=== PATIENT | male | born 1960 | race Caucasian/White ===

== ENCOUNTER 2017-09-14 18:41 | Emergency (ER) | payer OTHER, SELFPAY ==
[2017-09-14 18:43] VITALS: BP 145/70; PULSE 74; RESP 14; TEMP 36.5; O2SAT 97; BMI 19.7
--- NOTE | 2017-09-14 18:50 | NURSING ---
CALLED [facility]
--- NOTE | 2017-09-14 18:56 | ED.RN ---
PT ACTUARIAL SCIENCE TEACHER IS CATRACHO LEIVA AND PHONE NUMBER IS [phone].
--- NOTE | 2017-09-14 19:18 | ED.RN ---
[facility] IN DEPT.
--- NOTE | 2017-09-14 19:37 | ED.VISSUMM ---
- ER Visit Summary Date of Service: 09/14/17 Chief Complaint: Laceration History of Present Illness: The patient is a 57 M with no primary care physician. Patient reports that he bumped his right elbow on a part at work. He states he has a sharp pain is 510 when he bends his elbow as the wound opens up. Is 2 out of 10 at rest. His tetanus is up-to-date. He denies any paresthesias distally. Physical Examination: Vitals: Stable. Afebrile. General: Well-nourished and well-developed. Head: Normocephalic atraumatic. Neck: Supple, no lymphadenopathy. No JVD. Nontender. Cardiovascular: Regular rate and rhythm. No murmurs. Respiratory: No respiratory distress. Clear to auscultation bilaterally. Abdominal: Soft, nontender, nondistended, normal bowel sounds. No guarding, rebound, or peritoneal signs. Back: Nontender. Extremities: 2 cm laceration over the right olecranon process. This does not involve the bursa. It is quite superficial. He has no pain with axial load of his arm. Skin: Normal color, no rash. Neurologic: Alert and oriented ?3. Cranial nerves II through XII are intact. Normal strength and sensation. Psych: Normal affect. Emergency Department Course and Treatment: He had his wound anesthetized and repaired. He tolerated it well. Treatment Plan: He will be discharged instructions to follow-up corporate care in 10-14 days for suture removal. Return to the emergency department for any worsening symptoms. Disposition: To home in improved and stable condition. Impression: 1. Laceration right elbow, 2 cm, repaired. Procedure note: Wound was cleansed with chlorhexidine soap. Anesthetized with 1% lidocaine without epinephrine. Copiously irrigated with normal saline. Wound was explored there is no foreign material present. It was closed with 5 simple interrupted 4-0 ethilon sutures. The patient tolerated it well. This note was generated with [employer] dictation software. It may contain incorrect words, spelling, and punctuation that were not noted in review of the chart prior to signing ED Disposition - Plan for ED Patient: Disposition: Home or Assisted Living Chief Complaint: Laceration Instructions: ED Laceration Ext Sutr Stap Tape Referrals: [facility] [GROUP OF PHYSICIANS] - 10-14 Days suture removal
--- NOTE | 2017-09-14 19:40 | ED.DCSUM_ITS ---
- ER Visit Summary Date of Service: 09/14/17 Chief Complaint: Laceration History of Present Illness: The patient is a 57 M with no primary care physician. Patient reports that he bumped his right elbow on a part at work. He states he has a sharp pain is 510 when he bends his elbow as the wound opens up. Is 2 out of 10 at rest. His tetanus is up-to-date. He denies any paresthesias distally. Physical Examination: Vitals: Stable. Afebrile. General: Well-nourished and well-developed. Head: Normocephalic atraumatic. Neck: Supple, no lymphadenopathy. No JVD. Nontender. Cardiovascular: Regular rate and rhythm. No murmurs. Respiratory: No respiratory distress. Clear to auscultation bilaterally. Abdominal: Soft, nontender, nondistended, normal bowel sounds. No guarding, rebound, or peritoneal signs. Back: Nontender. Extremities: 2 cm laceration over the right olecranon process. This does not involve the bursa. It is quite superficial. He has no pain with axial load of his arm. Skin: Normal color, no rash. Neurologic: Alert and oriented ?3. Cranial nerves II through XII are intact. Normal strength and sensation. Psych: Normal affect. Emergency Department Course and Treatment: He had his wound anesthetized and repaired. He tolerated it well. Treatment Plan: He will be discharged instructions to follow-up corporate care in 10-14 days for suture removal. Return to the emergency department for any worsening symptoms. Disposition: To home in improved and stable condition. Impression: 1. Laceration right elbow, 2 cm, repaired. Procedure note: Wound was cleansed with chlorhexidine soap. Anesthetized with 1% lidocaine without epinephrine. Copiously irrigated with normal saline. Wound was explored there is no foreign material present. It was closed with 5 simple interrupted 4- 0 ethilon sutures. The patient tolerated it well. This note was generated with [employer] dictation software. It may contain incorrect words, spelling, and punctuation that were not noted in review of the chart prior to signing ED Disposition - Plan for ED Patient: Disposition: Home or Assisted Living Chief Complaint: Laceration Instructions: ED Laceration Ext Sutr Stap Tape Referrals: [facility] [GROUP OF PHYSICIANS] - 10-14 Days suture removal
--- NOTE | 2017-09-14 19:53 | ED.RN ---
DISCHARGE INSTRUCTIONS GIVEN TO AND REVIEWED WITH PATIENT, PATIENT DENIES QUESTIONS OR CONCERNS AND VOICES UNDERSTANDING OF DISCHARGE INSTRUCTIONS. PT AMBULATES OUT OF ROOM WITHOUT DIFFICULTY.
== END 2017-09-14 19:55 | disposition home or self-care (01) ==
LOC: ED 19:09
PROVIDERS: Emergency Provider Emergency Medicine
DX: S51.011A Laceration without foreign body of right elbow, initial encounter (principal); W22.8XXA Striking against or struck by other objects, initial encounter; Y93.9 Activity, unspecified; Y92.89 Other specified places as the place of occurrence of the external cause; Y99.0 Civilian activity done for income or pay; I10 Essential (primary) hypertension; I25.10 Atherosclerotic heart disease of native coronary artery without angina pectoris; F17.200 Nicotine dependence, unspecified, uncomplicated; Z95.1 Presence of aortocoronary bypass graft
CPT/HCPCS: 12001; 99282

== ENCOUNTER 2017-10-29 21:02 | Emergency (ER) | payer BC, SELFPAY ==
[2017-10-29 21:03] VITALS: BP 156/106; PULSE 96; RESP 18; TEMP 36.6; O2SAT 99; BMI 25.0
--- NOTE | 2017-10-29 21:36 | ED.DCSUM_ITS ---
- ER Visit Summary Date of Service: 10/29/17 Chief Complaint: Dog bite right calf History of Present Illness: The patient is a 57 M who states he was bit by a pit bull. He denies any paresthesia, anesthesia motors. He reports anaphylactic reaction to penicillin. He is uncertain when his last tetanus shot was. He has no other complaints. Physical Examination: Blood pressure is elevated 156/106. He has puncture wounds to the right calf. The calf is not taut with minimal tenderness. There is no findings suggest a compartment syndrome. DP PT pulses are palpable. He has normal sensation of the foot. There is no pain to palpation over the tibia or the fibula. Test Results: None Emergency Department Course and Treatment: Cleanse wound and treat with doxycycline since is allergic to penicillin. There is no value in irrigating his irrigation will drive in the skin pippa and may increase chance of infection. Treatment Plan: Doxycycline 100 mg twice daily ?7 days and wound check in 2 days Disposition: Discharged home with appropriate home-going instructions Impression: Puncture wound secondary to dog bite right calf This note was generated with [employer] dictation software. It may contain incorrect words, spelling, and punctuation that were not noted in review of the chart prior to signing ED Disposition - Plan for ED Patient: Disposition: Home or Assisted Living Chief Complaint: Bite Instructions: ED Bite Dog Prescriptions: Doxycycline Monohydrate 100 mg PO BID #14 cap Referrals: Care Physician,No Primary [Primary Care Provider] - Yosvany Kitchen MD [STAFF PHYSICIAN] - 2 Days for wound check Additional Instructions: Since you do not have a doctor who referred to Dr. Yosvany Kitchen for wound check in 2 days
[2017-10-29] MEDS: Diphth,Pertuss(Acell),Tet Vac 0.5 ML Vial IM (21:57)
[2017-10-29] MEDS: Doxycycline 100 MG CAPSULE PO (21:57)
== END 2017-10-29 22:21 | disposition home or self-care (01) ==
PROVIDERS: Emergency Provider Emergency Medicine
DX: S81.831A Puncture wound without foreign body, right lower leg, initial encounter (principal); W54.0XXA Bitten by dog, initial encounter; Y93.9 Activity, unspecified; Y92.9 Unspecified place or not applicable; Y99.9 Unspecified external cause status; Z88.0 Allergy status to penicillin; Z72.0 Tobacco use
CPT/HCPCS: 90471; 90715; 99284; A4216

== ENCOUNTER 2017-12-30 17:32 | Emergency (ER) | payer OTHER, SELFPAY ==
[2017-12-30 17:33] VITALS: BP 149/87; PULSE 84; RESP 18; TEMP 37.1; O2SAT 98; BMI 25.5
--- NOTE | 2017-12-30 18:33 | ED.VISSUMM ---
- ER Visit Summary Date of Service: 12/30/17 Chief Complaint: Right elbow skin laceration History of Present Illness: The patient is a 57 M [id number]. States tetanus up-to-date. He works at [employer] and accidentally hit his right elbow against a metallic parts which cause a laceration. This occurred within the last 2 hours. He denies any other injuries. He has full range of motion to his elbow. States that there is no foreign body because of the large part. Physical Examination: Well-appearing middle-age male. Vital signs stable afebrile. H EENT exam unremarkable. Neck nontender. Lungs clear to auscultation bilaterally. Heart regular rate and rhythm no murmur. Chest nontender. Abdomen soft nontender. He is moving all 4 extremities. The neurovascular intact. Nontender no deformity normal range of motion. Specifically right shoulder wrist and hand are nontender neurovascular intact. 75 management professionals strength strong radial pulse. Normal touch sensation of his right hand. He has a 4 cm V-shaped laceration to the posterior aspect of his right elbow. No gross bony deformity. He has full flexion-extension supination and pronation of the right elbow. There is no foreign body. There is minimal bleeding. No signs of infection. Neurologic exam normal. Test Results: None Emergency Department Course and Treatment: Right elbow skin laceration with ER repair. Local anesthetic with lidocaine. Cleaned with Shur-Clens copiously irrigated, washed with saline and explored. Closed using 5-0 Ethilon simple interrupted sutures. 5 simple interrupted 5-0 Ethilon sutures. Proper hemostasis wound closure was obtained. Proper hemostasis wound closure was obtained. Patient was instructed on wound care and suture removal. Treatment Plan: Follow-up with [employer] [facility] is Worker's Comp. agency. Ice the area. Motrin for pain. Sutures out in 10 days. Disposition: Discharge Impression: Right elbow laceration with ER repair of 4 cm. Worker's Compensation injury This note was generated with [employer] dictation software. It may contain incorrect words, spelling, and punctuation that were not noted in review of the chart prior to signing ED Disposition - Plan for ED Patient: Chief Complaint: Laceration Referrals: Care Physician,No Primary [Primary Care Provider] -
--- NOTE | 2017-12-30 18:36 | ED.DCSUM_ITS ---
- ER Visit Summary Date of Service: 12/30/17 Chief Complaint: Right elbow skin laceration History of Present Illness: The patient is a 57 M [id number]. States tetanus up-to-date. He works at [employer] and accidentally hit his right elbow against a metallic parts which cause a laceration. This occurred within the last 2 hours. He denies any other injuries. He has full range of motion to his elbow. States that there is no foreign body because of the large part. Physical Examination: Well-appearing middle-age male. Vital signs stable afebrile. H EENT exam unremarkable. Neck nontender. Lungs clear to auscultation bilaterally. Heart regular rate and rhythm no murmur. Chest nontender. Abdomen soft nontender. He is moving all 4 extremities. The neurovascular intact. Nontender no deformity normal range of motion. Specifically right shoulder wrist and hand are nontender neurovascular intact. 75 borough coordinator strength strong radial pulse. Normal touch sensation of his right hand. He has a 4 cm V-shaped laceration to the posterior aspect of his right elbow. No gross bony deformity. He has full flexion-extension supination and pronation of the right elbow. There is no foreign body. There is minimal bleeding. No signs of infection. Neurologic exam normal. Test Results: None Emergency Department Course and Treatment: Right elbow skin laceration with ER repair. Local anesthetic with lidocaine. Cleaned with Shur-Clens copiously irrigated, washed with saline and explored. Closed using 5-0 Ethilon simple interrupted sutures. 5 simple interrupted 5-0 Ethilon sutures. Proper hemostasis wound closure was obtained. Proper hemostasis wound closure was obtained. Patient was instructed on wound care and suture removal. Treatment Plan: Follow-up with [employer] [facility] is Worker's Comp. agency. Ice the area. Motrin for pain. Sutures out in 10 days. Disposition: Discharge Impression: Right elbow laceration with ER repair of 4 cm. Worker's Compensation injury This note was generated with [employer] dictation software. It may contain incorrect words, spelling, and punctuation that were not noted in review of the chart prior to signing ED Disposition - Plan for ED Patient: Chief Complaint: Laceration Referrals: Care Physician,No Primary [Primary Care Provider] -
--- NOTE | 2017-12-30 19:54 | ED.DEP ---
ED Disposition - Plan for ED Patient: Disposition: Home or Assisted Living Chief Complaint: Laceration Instructions: ED Laceration All [facility]errals: [facility] [GROUP OF PHYSICIANS] - 10 Day for suture removal Additional Instructions: Keep wound clean. Clean daily with soap and water or peroxide and water. May get wet to dry thoroughly. Stitches out in 10 days. Return if any signs of infection such as redness, swelling, pus, fever or red streaks.
[2017-12-30 20:04] VITALS: RESP 16
== END 2017-12-30 20:05 | disposition home or self-care (01) ==
PROVIDERS: Emergency Provider Emergency Medicine
DX: S51.011A Laceration without foreign body of right elbow, initial encounter (principal); W22.8XXA Striking against or struck by other objects, initial encounter; Y93.89 Activity, other specified; Y92.69 Other specified industrial and construction area as the place of occurrence of the external cause; Y99.0 Civilian activity done for income or pay; I25.10 Atherosclerotic heart disease of native coronary artery without angina pectoris; I25.2 Old myocardial infarction; Z95.1 Presence of aortocoronary bypass graft; Z72.0 Tobacco use
CPT/HCPCS: 12002; 99282

== ENCOUNTER 2019-04-18 22:53 | Emergency (ER) | payer OTHER, BC, SELFPAY ==
[2019-04-18 22:54] VITALS: BP 171/102; PULSE 84; RESP 18; TEMP 36.2; O2SAT 96; BMI 25.8
--- NOTE | 2019-04-18 23:18 | ED.VISSUMM ---
- ER Visit Summary Date of Service: 04/18/19 Chief Complaint: Laceration History of Present Illness: The patient is a 58 M with no primary care physician. Reports approximate 1030 this evening he cut his right shoulder on a piece of metal that was sticking out at work. Reports he has a burning pain is 6 out of 10 at worst and 5-10 currently. Is worsened by movement relieved by rest. He is right-hand dominant. Denies any paresthesias distally. His tetanus is up-to-date. Physical Examination: Vitals: Stable. Afebrile. General: Well-nourished and well-developed. Head: Normocephalic atraumatic. Neck: Supple, no lymphadenopathy. No JVD. Nontender. Cardiovascular: Regular rate and rhythm. No murmurs. Respiratory: No respiratory distress. Clear to auscultation bilaterally. Abdominal: Soft, nontender, nondistended, normal bowel sounds. No guarding, rebound, or peritoneal signs. Back: Nontender. Extremities: 6 cm laceration of the lateral surface of his right deltoid. Minimal active bleeding. He is neurovascular intact distal to this, no edema. Skin: Normal color, no rash. Neurologic: Alert and oriented ?3. Cranial nerves II through XII are intact. Normal strength and sensation. Psych: Normal affect. Emergency Department Course and Treatment: Patient was treated with Tylenol. He had his wound anesthetized and repaired. He tolerated this well. Treatment Plan: Patient be discharged instructions follow-up corporate care in 10 to 14 days for suture removal. Return to the emergency department for any worsening symptoms. Disposition: To home in improved and stable condition. Impression: 1. Laceration right shoulder, 6 cm, repaired. Procedure note: Wound was cleansed with chlorhexidine soap. Anesthetized with 1% lidocaine without epinephrine. Copiously irrigated with normal saline. Wound was explored there is no foreign material present. It was closed with 6 simple interrupted 4-0 ethilon sutures. The patient tolerated it well. This note was generated with [employer] dictation software. It may contain incorrect words, spelling, and punctuation that were not noted in review of the chart prior to signing ED Disposition - Plan for ED Patient: Instructions: LACERATION, Extrem (Suture, Staple or Tape) Referrals: [facility] [GROUP OF PHYSICIANS] - 10-14 Days suture removal
== END 2019-04-19 00:12 | disposition home or self-care (01) ==
PROVIDERS: Emergency Provider Emergency Medicine
DX: S41.011A Laceration without foreign body of right shoulder, initial encounter (principal); W26.8XXA Contact with other sharp object(s), not elsewhere classified, initial encounter; Y93.9 Activity, unspecified; Y92.89 Other specified places as the place of occurrence of the external cause; Y99.0 Civilian activity done for income or pay; I25.10 Atherosclerotic heart disease of native coronary artery without angina pectoris; I10 Essential (primary) hypertension; Z95.1 Presence of aortocoronary bypass graft; Z72.0 Tobacco use
CPT/HCPCS: 12002; 99284

== ENCOUNTER 2020-11-10 16:25 | Outpatient (RCR) | payer BC, SELFPAY | END 2020-12-15 23:59 | LOC: IMMUN 16:25 | PROVIDERS: Visit Provider Family Medicine | DX: Z23 Encounter for immunization (principal) | CPT/HCPCS: 0001A; 0002A; 91300 ==

== ENCOUNTER → 2023-01-10 | Outpatient (CLI) | payer BC, SELFPAY ==
--- NOTE | 2023-01-10 12:58 | CT_ITS ---
STUDY: LOW DOSE CT LUNG CANCER SCREENING REASON FOR EXAM: Male, 62 years old. Lung cancer screening -- 30 pk yr hx;current smoker;asymptomatic RADIATION DOSAGE (If Supplied By Facility): CTDIvol = ( 3.02 ) mGy, DLP = ( 103.07 ) mGycm TECHNIQUE: No contrast was administered. Low dose technique was utilized (average mAS-38 and kVp 120). 1.25 mm axial source images with a slice interval of 1.25-mm were reconstructed in lung windows. 2.5 mm axial source images with a slice interval of 2.5-mm were reconstructed in lung windows. 5.0 mm axial source images with a slice interval of 5.0-mm were reconstructed in soft tissue windows. COMPARISON: None. NODULES: Scattered calcified granulomas. Emphysema: No significant emphysematous changes are seen. Endobronchial lesion: None Aorta: Atherosclerotic calcific plaques of the aortic arch. CORONARY ARTERIES: Coronary artery calcification is seen. Heart: Prior CABG Pulmonary artery: Unremarkable Mediastinal nodes: Benign-appearing small mediastinal lymph nodes. Other chest and abdominal findings: CT/Low Dose CT Lung Screening IMPRESSION: Lung-RADS category 2 - Continue annual screening with LDCT in 12 months. IMPORTANT NOTES FOR USE: ACR Lung-RADS Version 1.1 Assessment Categories Release Date: 2018 Category: Coded 0-4 bases on nodule(s) with highest degree of suspicion. Negative screen is defined as categories 1 and 2; a positive screen is defined as categories 3 and 4. Category 3 and 4A nodules that are unchanged on interval CT should be coded as category 2, and individuals returned to screening in 12 months. Category 4X: Category 3 or 4 nodules with additional imaging findings that increase the suspicion of lung cancer, such as spiculation, GGN that doubles in size in 1 year, enlarged lymph notes, etc. Category Modifiers: S (significant finding unrelated to lung cancer) Electronically Signed: David Epstein MD at 13:44 EDT ,
== END | disposition home or self-care (01) ==
PROVIDERS: Referring Provider Nurse Practitioner Family; Visit Provider Nurse Practitioner Family
DX: Z87.891 Personal history of nicotine dependence (principal)
CPT/HCPCS: 71271

== ENCOUNTER 2023-06-20 17:28 | Emergency (ER) | payer OTHER, BC, SELFPAY ==
[2023-06-20 17:30] VITALS: BP 188/105; PULSE 93; RESP 20; TEMP 36.7; O2SAT 100; BMI 24.3
[2023-06-20] MEDS: Lidocaine 1% (20 ml mdv) 20 ML Vial INFILT (17:44)
--- NOTE | 2023-06-20 17:51 | EDS_ITS ---
HPI <Dr. Jason Lea MD - Last Filed: 06/20/23 18:15> History of Present Illness Chief Complaint: Laceration Detail of Chief Complaint: Laceration mid right forearm ulnar side Informant: patient Occured/Mechanism Mechanism/Context: Yes blunt trauma Comment: This occurred at work. He was cut by a machine part. Onset/Context/Timing Onset: Hours Current Severity: Bleeding controlled with pressure Maximum Severity: Moderate Worsened by: Not applicable Relieved by: Pressure Associated Symptoms Associated Symptoms: Negative for Parasthesia, Weakness or Loss of Funtion Narrative Narrative: Patient is a 63-year-old [id number] male presents with laceration of his forearm. This is 2.3 cm in length. He denies paresthesia, anesthesia medic s. Last tetanus was 3 to 4 years ago. He is not on antithrombotic or anticoagulant. Tetanus Immunization: <5 years Prior similar symptoms: No Recent Illness/Hospitalization: No PFSH <Dr. Jason Lea MD - Last Filed: 06/20/23 18:15> PFSH Medical History Chronic renal failure CKD (chronic kidney disease) stage 3, GFR 30-59 ml/min Encounter for screening for malignant neoplasm of lung Grade A2 albuminuria History of tobacco use Leukocytosis Low back pain Mixed hyperlipidemia Myalgia PSA elevation Thrombocytosis Tobacco use disorder, continuous Type 1 diabetes mellitus with stage 2 chronic kidney disease Home Medications acetaminophen 500 mg tablet (Tylenol Extra Strength) 500 mg PO Q6H PRN 11/30/22 [History Last Taken Unknown] docusate sodium 100 mg capsule 100 mg PO BID 11/30/22 [History Last Taken Unknown] pantoprazole 40 mg tablet,delayed release 40 mg PO DAILY 11/30/22 [History Last Taken Unknown] tizanidine 4 mg capsule 4 mg PO QHS PRN 11/30/22 [History Last Taken Unknown] ibuprofen 200 mg capsule 200 mg PO Q6H PRN 12/15/22 [History Last Taken Unknown] dapagliflozin propanediol 5 mg tablet (Farxiga) 10 mg PO DAILY 01/10/23 [History Last Taken Unknown] Allergy/AdvReac Type Severity Reaction Status Date / Time Penicillins Allergy Anaphylaxis Verified 06/20/23 17:30 venom-honey bee Allergy Anaphylaxis Verified 06/20/23 17:30 [bee venom (honey bee)] Social History Smoking Status: Current every day smoker tobacco type: cigarettes alcohol intake: never substance use type: does not use ROS <Dr. Jason Lea MD - Last Filed: 06/20/23 18:15> ROS ED Neurologic Neurologic: Reports other Details: Further detail HPI narrative ; Denies paresthesias or weakness Hematologic/Lymphatic Hematologic/Lymphatic: Denies easy bleeding or easy bruising EXAM <Dr. Jason Lea MD - Last Filed: 06/20/23 18:15> Physical Exam Const Vital Signs: 06/20/23 17:30 Temperature 98.1 F Temperature Source Temporal Pulse Rate 93 Respiratory Rate 20 H Blood Pressure 188/105 H Blood Pressure Mean 132 Pulse Ox 100 Oxygen Delivery Method Room Air Positive well nourished and well developed General Appearance ED: well developed and NAD HEENT normocephalic and atraumatic Eyes PERRL and EOMs intact bilaterally Resp normal respiratory effort Cardio regular rate and regular rhythm Extremity Extremity Narrative: Laceration ulnar side right forearm 2.3 cm. Median, radial and ulnar function intact. Neuro oriented x3, CN's II-XII intact bilaterally, no focal motor deficits and no sensory deficits noted Sensorium / Orientation: alert Psych mental status grossly normal Skin Skin Narrative: Laceration right forearm laceration is down to subcutaneous tissue/fat [facility] <Dr. Jason Lea MD - Last Filed: 06/20/23 18:15> [facility] Narrative Medical decision making narrative: Patient laceration will require repair. Repair was performed by nurse daly lorenz under my direct supervision/guidance <KANDI Caballero - Last Filed: 06/20/23 18:06> [facility] Treatment and Re-Evaluation Narrative: Patient appears well, patient appears nontoxic, vital signs are stable. Present to the emergency department with a laceration to the posterior right forearm. This is roughly 2.5 cm linear. This was irrigated copiously with 300 cc of normal saline. I did place 6 simple sutures of 4-0 Ethilon. Patient did well, edges approximated nicely. A pressure dressing was placed. Patient will have these removed in 10 to 12 days. All questions were answered, patient's tetanus vaccination was updated 4 to 5 days. All questions answered, patient stable for discharge Procedures <KANDI Caballero - Last Filed: 06/20/23 18:06> Lacerations Forearm laceration: Depth: Skin Prep: Sterile Conditions and Shure-Clens Laceration repair: Lidocaine Irrigated (ml): 300 Number of Sutures/[place]: 6 Suture Information: Ethilon Comment: Please follow-up outpatient. Sterile gloves, sterile drapes used. Tolerated well. Discharge Plan Triage Chief Complaint: Laceration ED Provider: Jason Lea Dx/Rx/DC Orders Clinical Impression: Mixed hyperlipidemia, Forearm laceration, Chronic renal failure, Elevated blood pressure reading Instructions: ED Laceration, All Closures Prescriptions: No Action pantoprazole 40 mg tablet,delayed release (DR/EC) 40 mg PO DAILY acetaminophen [Tylenol Extra Strength] 500 mg tablet 500 mg PO Q6H PRN docusate sodium 100 mg capsule 100 mg PO BID tizanidine 4 mg capsule 4 mg PO QHS PRN ibuprofen 200 mg capsule 200 mg PO Q6H PRN Farxiga 5 mg tablet 10 mg PO DAILY Patient Comments: TAKE ONE TABLET BY MOUTH QD. AFTER 30 DAYS IF DOING WELL, WILL INCREASE DOSE. PLEASE CALL OFFICE. Primary Care Provider: Samuel Arguelles [facility] - 10 Day for suture removal Samuel Arguelles DO [Primary Care Provider] - Activity Restrictions/Additional Instructions: 1. Keep wound clean and dry 2. Clean wound with peroxide and Q-tip then apply bacitracin ointment. Perform this 3 times a day 3. If there is any concern for infection follow-up with corporate care or return to the emergency department Disposition Disposition: Home, Self Care
[2023-06-20 18:04] VITALS: BP 152/74; PULSE 81; RESP 12; O2SAT 99
--- NOTE | 2023-06-20 18:13 | ED.RN ---
[facility] REPORTS THAT SHE WILL BE IN TO EVALUATE THE PT.
== END 2023-06-20 18:19 | disposition home or self-care (01) ==
LOC: ED 18:13
PROVIDERS: Emergency Provider Emergency Medicine; Visit Provider Emergency Medicine
DX: S51.811A Laceration without foreign body of right forearm, initial encounter (principal); E10.22 Type 1 diabetes mellitus with diabetic chronic kidney disease; N18.30 Chronic kidney disease, stage 3 unspecified; E78.2 Mixed hyperlipidemia; R03.0 Elevated blood-pressure reading, without diagnosis of hypertension; F17.210 Nicotine dependence, cigarettes, uncomplicated; W31.89XA Contact with other specified machinery, initial encounter
CPT/HCPCS: 12001; 99284

== ENCOUNTER 2024-07-18 19:21 | Emergency (ER) | payer BC, SELFPAY ==
[2024-07-18 19:22] VITALS: BP 210/104; PULSE 69; RESP 18; TEMP 36.8; O2SAT 98; BMI 27.0
[2024-07-18] MEDS: Lidocaine 1% (20 ml mdv) 20 ML Vial INFILT (19:47)
--- NOTE | 2024-07-18 19:50 | EX.ED.GENINJ ---
HPI History of Present Illness Chief Complaint: Laceration Informant: patient Narrative Narrative: 64-year-old male presenting to the emergency department with right ring finger laceration. Patient was clearing snow out from his bumper when he felt something cut his finger. He notes his tetanus was updated last year when he got stitches to the right forearm. He notes that he can still move the finger like normally. Bleeding was controlled at the scene. Patient noted to be hypertensive in triage. He does not appear to have any symptomology from hypertension. He states that he knows that he does have hypertension. 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 Thrombocytosis PSA elevation Myalgia Mixed hyperlipidemia Low back pain Grade A2 albuminuria CKD (chronic kidney disease) stage 3, GFR 30-59 ml/min Home Medications ?Medication ?Instructions ?Recorded ?Last Taken ?Type acetaminophen 500 mg tablet 500 mg PO Q6H PRN 11/30/22 Unknown History (Tylenol Extra Strength) docusate sodium 100 mg capsule 100 mg PO BID 11/30/22 Unknown History pantoprazole 40 mg tablet,delayed 40 mg PO DAILY 11/30/22 Unknown History release tizanidine 4 mg capsule 4 mg PO QHS PRN 11/30/22 Unknown History ibuprofen 200 mg capsule 200 mg PO Q6H PRN 12/15/22 Unknown History dapagliflozin propanediol 5 mg 10 mg PO DAILY 01/10/23 Unknown History tablet (Farxiga) Allergy/AdvReac Type Severity Reaction Status Date / Time Penicillins Allergy Anaphylaxis Verified 07/18/24 19:24 venom-honey bee (bee venom Allergy Anaphylaxis Verified 07/18/24 19:24 (honey bee)) Social History Smoking Status: Current every day smoker tobacco type: cigarettes alcohol intake: never substance use type: does not use ROS ROS ED Constitutional Constitutional ED: Denies chills or weight loss Eyes Eyes: Denies change in vision or diplopia ENT ENT ED: Denies ear pain, rhinorrhea or sore throat Cardiovascular Cardiovascular: Denies chest pain, orthopnea, palpitations or racing heartbeat Respiratory/Chest Respiratory/Chest: Denies cough, dyspnea or orthopnea Gastrointestinal Gastrointestinal: Denies abdominal pain, diarrhea, nausea or vomiting Genitourinary Genitourinary ED: Denies dysuria, hematuria or urinary frequency Musculoskeletal Musculoskeletal: Denies arthralgias or myalgias Integumentary Reports other Details: Right ring finger laceration ; Denies abscess or rash Neurologic Neurologic: Denies headache(s) or weakness Psychiatric Psychiatric: Denies anxiety, depression, suicidal ideation or suicidal thoughts Endocrine Endocrinology: Denies polydipsia, polyphagia or polyuria Allergic/Immunologic Allergic/Immunologic ED: Denies mouth swelling, tongue swelling or urticaria EXAM Physical Exam Const Vital Signs: 07/18/24 19:22 07/18/24 19:54 Temperature 98.3 F Temperature Source Oral Pulse Rate 69 Respiratory Rate 18 Blood Pressure 210/104 H 165/100 H Blood Pressure Mean 139 121 Pulse Ox 98 Oxygen Delivery Method Room Air Positive well nourished and well developed General Appearance ED: well developed and NAD HEENT Reports normocephalic, head/scalp atraumatic and moist mucous membranes Eyes PERRL and EOMs intact bilaterally Neck no lymphadenopathy, supple and no JVD Resp normal respiratory effort and clear to auscultation bilaterally Cardio regular rate, regular rhythm and no murmurs GI normal to inspection, nondistended, normoactive bowel sounds and non-tender Palpation: soft Back/Spine no CVA tenderness and normal ROM Extremity normal to inspection General Extremety ED: Negative for edema General Extremity: Negative for edema Neuro oriented x3 and CN's II-XII intact bilaterally Sensorium / Orientation: alert Motor Exam: strength 5/5 throughout Psych mental status grossly normal Mood & Affect: Negative for depressed or tearful Skin no rashes or lesions noted Skin Narrative: There is a 1.5 cm linear laceration across the volar aspect of the right ring finger in the middle of the proximal phalanx. Neurovascularly appears intact with no deficits. There is no tendon deficit. No tendon visualized. Bleeding is controlled. MDM MDM MDM Narrative Medical decision making narrative: Differential diagnosis includes laceration tendon laceration neurovascular injury bone fracture Wound was locally anesthetized using 1% lidocaine. Wound was washed with Shur-Clens and explored. It is close she is total of 5 simple interrupted 4-0 Ethilon sutures. Wound was then dressed with bacitracin Telfa and [place]. Stitches will need to be removed in 7 to 10 days. Monitor for signs of infection return if worsening or concerns patient is comfortable with this plan History & Record Review Discussion w/independent historian: Patient Discharge Plan Triage Chief Complaint: Laceration ED Provider: David Knowles Dx/Rx/DC Orders Clinical Impression: Finger laceration, Hypertension Instructions: Hypertension Dc, ED Laceration, Hand: All Closures Prescriptions: No Action pantoprazole 40 mg tablet,delayed release (DR/EC) 40 mg PO DAILY acetaminophen [Tylenol Extra Strength] 500 mg tablet 500 mg PO Q6H PRN docusate sodium 100 mg capsule 100 mg PO BID tizanidine 4 mg capsule 4 mg PO QHS PRN ibuprofen 200 mg capsule 200 mg PO Q6H PRN Farxiga 5 mg tablet 10 mg PO DAILY Patient Comments: TAKE ONE TABLET BY MOUTH QD. AFTER 30 DAYS IF DOING WELL, WILL INCREASE DOSE. PLEASE CALL OFFICE. Primary Care Provider: Samuel Arguelles Referrals: Samuel Arguelles DO [Primary Care Provider] - 7 Days for suture removal Print Language: Slovak Disposition Disposition: Home, Self Care
[2024-07-18 19:54] VITALS: BP 165/100
== END 2024-07-18 20:04 | disposition home or self-care (01) ==
LOC: ED 19:57
PROVIDERS: Emergency Provider Emergency Medicine; Referring Provider Emergency Medicine; Visit Provider Emergency Medicine
DX: S61.214A Laceration without foreign body of right ring finger without damage to nail, initial encounter (principal); E10.22 Type 1 diabetes mellitus with diabetic chronic kidney disease; N18.30 Chronic kidney disease, stage 3 unspecified; I12.9 Hypertensive chronic kidney disease with stage 1 through stage 4 chronic kidney disease, or unspecified chronic kidney disease; E78.2 Mixed hyperlipidemia; F17.210 Nicotine dependence, cigarettes, uncomplicated; W26.8XXA Contact with other sharp object(s), not elsewhere classified, initial encounter
CPT/HCPCS: 12001; 99284